=== PATIENT | male | born 1965 | race Caucasian/White ===

== ENCOUNTER 2024-01-17 06:13 | Day surgery (SDC) | payer BC, SELFPAY ==
[2024-01-13 08:07] VITALS: BMI 44.0
[2024-01-13 08:56] LABS: % Basophils 0.6 % (0-2); % Eosinophils 1.2 % (0-6); % Immature Granulocytes 1.3 % (0-0.5); % Lymphocytes 13.8 % (20.5-51.1); % Monocytes 7.4 % (1.7-9.3); % Neutrophils 75.7 % (42.2-75.2); Absolute Basophils 0.1 10^3/uL (0-0.2); Absolute Eosinophils 0.2 10^3/uL (0-0.7); Absolute Immature Granulocytes 0.2 10^3/uL (0-0.05); Absolute Lymphocytes 1.9 10^3/uL (1.2-3.4); Absolute Neutrophils 10.3 10^3/uL (1.4-6.5); Hematocrit 54.4 % (39.0-52.0); Hemoglobin 18.2 g/dL (13.0-18.0); Mean Corp Hgb Conc. 33.5 g/dL (33.0-37.0); Mean Corpuscular Hgb 29.3 pg (27.0-31.0); Mean Corpuscular Volume 87.5 fL (80.0-94.0); Mean Platelet Volume 9.8 fL (7.4-10.4); Nucleated Red Blood Cells % 0 % (-); Platelet Count 284 10^3/uL (130-400); Red Blood Cell Count 6.22 10^6/uL (4.70-6.10); White Blood Cell Count 13.6 10^3/uL (4.8-10.8)
[2024-01-13 09:19] LABS: Blood Urea Nitrogen 19 mg/dl (9-20); Calcium 9.7 mg/dl (8.4-10.2); Carbon Dioxide 29 mmol/L (22-30); Chloride 105 mmol/L (98-107); Estimated Creatinine Clearance 120 ml/min; Glucose 133 mg/dl (70-99); Potassium 4.2 mmol/L (3.5-5.1); Sodium 139 mmol/L (135-145); eGFR > 60.00
[2024-01-17] VITALS (7 sets, daily range): BP systolic 107–151; BP diastolic 60–95; BMI 44.0
[2024-01-17] MEDS: CELEBREX 200 MG PO (07:06)
[2024-01-17] MEDS: TYLENOL 1000 MG PO (07:06)
[2024-01-17 07:07] LABS: Glucose - Point of Care 132 mg/dl (70-99)
[2024-01-17] MEDS: NORMOSOL-R 1000 IV (07:07)
[2024-01-17 09:36] LABS: Glucose - Point of Care 154 mg/dl (70-99)
[2024-01-17] MEDS: ROXICODONE 5 MG PO (10:30)
== END 2024-01-17 11:06 | disposition home or self-care (01) ==
LOC: SDS 06:13
PROVIDERS: ATTENDING PHYSICIAN Orthopaedic Surgery; FAMILY PHYSICIAN Family Medicine
DX: S46.212A Strain of muscle, fascia and tendon of other parts of biceps, left arm, initial encounter (principal); X50.0XXA Overexertion from strenuous movement or load, initial encounter; Y93.89 Activity, other specified
CPT/HCPCS: 24342; 36415; 80048; 82962; 85025; 93005; C1713

== ENCOUNTER 2025-08-23 06:03 | Day surgery (SDC) | payer BC, SELFPAY ==
--- NOTE | 2025-08-21 15:26 | PTCARENOTE ---
Patients last dose Mounjaro 08/19- surgery is 08/23. Dr. Grimm notified- patient to follow strict clear liqs 24 hours preop and NPO 2 hours prior to procedure. Pt provided instructions and info repeated back- good comprehension regarding
instructions provided.
[2025-08-23 06:51] VITALS: BP 129/79
[2025-08-23 06:58] VITALS: BMI 35.8
[2025-08-23] MEDS: HEPARIN 5000 UNITS SC (07:03)
[2025-08-23] MEDS: TYLENOL 1000 MG PO (07:03)
[2025-08-23] MEDS: NORMOSOL-R/PLASMALYTE-A 1000 IV (07:18)
[2025-08-23 07:19] LABS: Glucose - Point of Care 89 mg/dl (70-99)
--- NOTE | 2025-08-23 08:18 | W.IMMPOSTOP ---
Surgical Immed Post Op Note
-
Primary Surgeon: Stanislaw
Assisting: Darnell PACHECO
Pre-op Diagnosis: Lipoma of back x2
Post-op Diagnosis: Lipoma and inclusion cyst of back
Procedure Performed: Excision of lipoma and inclusion cyst of back
Anesthesia Type: MAC local
Specimen / Cultures: Back lipoma, back cyst
Estimated Blood Loss: 5cc
Complications: None immediate
Operative Findings: inferior lesion: inclusion cyst, deep seated, specimen 3cm x 2cm x 2cm; superior lesion: lobulated lipoma, deep seated, specimen 6cm x 5cm x5cm
--- NOTE | 2025-08-23 08:20 | OR.RPT ---
Operative Report
Operative Report
Primary Surgeon: Stanislaw
Assisting: Darnell PACHECO
Pre-op Diagnosis: Lipoma of back x2
Post-op Diagnosis: Lipoma and inclusion cyst of back
Procedure Performed: Excision of lipoma and inclusion cyst of back
Anesthesia Type: MAC local
Specimen / Cultures: Back lipoma, back cyst
Estimated Blood Loss: 5cc
Complications: None immediate
Operative Findings: inferior lesion: inclusion cyst, deep seated, specimen 3cm x 2cm x 2cm; superior lesion: lobulated lipoma, deep seated, specimen 6cm x 5cm x5cm
Date of Surgery: 08/23/25
Indications: This 60M developed two symptomatic back lipomas and excision under MAC local was elected.
PROCEDURE: After informed consent was obtained, the patient was brought to the operative suite and placed prone on the operating table. The patient was sedated, prepped and draped in the usual sterile manner and an adequate local anesthetic was
administered using lidocaine with epinephrine.
Attention as turned to the inferior lesion. A full thickness elliptical incision was made with a #15 blade and carried down to the subcutaneous level with cautery. The capsule was exposed and a small amount of contents extruded. The capsule was
dissected away from surrounding tissues with blunt dissection and cautery and ultimately excised in toto and then passed off the table as specimen. The wound was then irrigated with copious sterile saline, and hemostasis was obtained using Bovie
electrocautery. The skin was approximated with 3-0 Vicryl deep dermal interrupted sutures and 4-0 monocryl suture in a subcuticular fashion. Topical skin glue was then applied.
Attention was turned to the superior lesion and the above process was repeated. The lipoma capsule was exposed and undermined with cautery. It abutted the muscle at the deep level. It was ultimately excised in toto and passed off the table as
specimen. The wound was then irrigated with copious sterile saline, and hemostasis was obtained using Bovie electrocautery. The skin was approximated with 3-0 Vicryl deep dermal interrupted sutures and 4-0 monocryl suture in a subcuticular fashion.
Topical skin glue was then applied.
All surgical counts were reported as correct. The patient tolerated the procedure well and was taken to the PACU in stable condition.
The assistance of Darnell PACHECO was required due to the complexity of the procedure. During the procedure she assisted with retraction, resection, and closure of the wound.
[2025-08-23 08:32] VITALS: BP 107/66; BP 129/79
[2025-08-23 08:44] LABS: Glucose - Point of Care 84 mg/dl (70-99)
[2025-08-23 08:45] VITALS: BP 122/78
[2025-08-23 08:50] VITALS: BP 117/68
[2025-08-23 09:29] VITALS: BP 119/72
[2025-08-23 09:37] VITALS: BP 145/83
== END 2025-08-23 09:42 | disposition home or self-care (01) ==
LOC: SDS 06:03
PROVIDERS: ATTENDING PHYSICIAN Surgery
DX: D17.1 Benign lipomatous neoplasm of skin and subcutaneous tissue of trunk (principal); L72.0 Epidermal cyst
CPT/HCPCS: 21931; 11406; 82962; 88304